=== PATIENT | female | born 1950 | race Caucasian/White ===

== ENCOUNTER 2020-04-16 17:02 | Emergency (ER) | payer MEDICARE, SELFPAY ==
[~2020-04-16] VITALS: Ht 170.2 cm; Wt 80.7 kg
[2020-04-16] MEDS ORDERED: NACL 0.9% 1,000 ML IV ONE ×2 (17:13→19:00)
--- NOTE | 2020-04-16 17:14 | NUR ---
Patient triaged and placed in waiting room (tent). VSS and patient appears in no acute distress at this time. Accompanied by , awaiting available bed, and MD notified of need for MSE.
[2020-04-16] MEDS ORDERED: MORPHINE 4 MG/ML INJ. SYRINGE IVP ONE (17:15)
[2020-04-16] MEDS ORDERED: ONDANSETRON HCL 4 MG/2 ML VIAL IVP ONE (17:15)
--- NOTE | 2020-04-16 17:39 | NUR ---
Patient to ER bed 06 to gown for evaluation. Side rails up. Report given to KIERA Sloan
--- NOTE | 2020-04-16 18:00 | NUR ---
Patient arrived via POV with family. Patient c/c of high blood pressure. Nausea, vomiting, diarrhea x 2 days, generalized weakness. Cough and SOB x 3 days. Patient notes 99.2 fever this AM. Patient is calm and cooperative. Will continue to follow up and monitor for changes in status.
[2020-04-16 18:27] LABS: BASOPHILS % (AUTO) 0.5 % (0.0-2.0); EOSINOPHILS % (AUTO) 0.9 % (0.0-4.0); HEMATOCRIT 40.5 % (36-48); HEMOGLOBIN 13.5 g/dL (12.0-16.0); LYMPHOCYTES # (AUTO) 0.7 K/uL (1.0-5.5); LYMPHOCYTES % (AUTO) 11.8 % (20.5-51.5); MEAN CORPUSCULAR HEMOGLOBIN 31 pg (27-31); MEAN CORPUSCULAR HGB CONC 33 % (32-36); MEAN CORPUSCULAR VOLUME 93 fL (79.0-98.0); MONOCYTES # (AUTO) 0.4 K/uL (0.0-1.0); MONOCYTES % (AUTO) 6.8 % (1.7-9.3); NEUTROPHILS # (AUTO) 4.6 K/uL (1.8-7.7); PLATELET COUNT (AUTO) 148 K/uL (130-430); RED BLOOD CELL COUNT(AUTO) 4.35 MIL/uL (4.2-6.2); RED CELL DISTRIBUTION WIDTH 13.5 % (9.0-15.0); WHITE BLOOD COUNT (AUTO) 5.8 K/uL (4.8-10.8)
[2020-04-16 18:34] LABS: CREATININE 0.78 mg/dL (0.55-1.30); POTASSIUM 3.7 mmol/L (3.5-5.1)
[2020-04-16 18:45] LABS: ALBUMIN 4.3 g/dL (3.4-4.8); TOTAL BILIRUBIN 0.6 mg/dL (0.0-1.0)
[2020-04-16 18:51] LABS: PROTHROMBIN TIME 9.9 SECS (9.5-12.5)
[2020-04-16 19:06] LABS: BILIRUBIN,URINE NEGATIVE (NEGATIVE); CLARITY/URINE CLEAR (CLEAR); COLOR,URINE YELLOW (YELLOW); GLUCOSE,URINE NEGATIVE (NEGATIVE); KETONES,URINE NEGATIVE (NEGATIVE); LEUKOCYTE ESTERASE ,URINE TRACE (NEGATIVE); NITRITE, URINE NEGATIVE (NEGATIVE); PROTEIN URINE NEGATIVE (NEGATIVE); UROBILINOGEN,URINE 0.2 (0.2-1.0)
[2020-04-16 19:15] LABS: BLOOD, URINE TRACE (NEGATIVE)
[2020-04-16 19:16] LABS: RBC,URINE NONE SEEN /HPF (0-3)
[2020-04-16 19:17] LABS: BACTERIA,URINE FEW /HPF (None Seen); MUCUS,URINE None Seen /LPF (None Seen)
[2020-04-16 19:50] VITALS: BP_SYST 160
--- NOTE | 2020-04-16 19:50 | NUR ---
Patient given written and verbal discharge instructions and verbalizes understanding. ER MD discussed with patient the results and treatment provided. Patient in stable condition. ID arm band removed. IV catheter removed intact and dressing applied, no active bleeding. Rx of FLAGYL, CIPRO, TYLENOL WITH CODEINE given. Patient educated on pain management and to follow up with PMD. Pain Scale 0/10. Opportunity for questions provided and answered. Medication side effect fact sheet provided.
== END 2020-04-16 19:50 | disposition home or self-care (01) ==
LOC: SED 17:02 → EEVIPCON 17:02 → SED 19:50
DX: K57.92 Diverticulitis of intestine, part unspecified, without perforation or abscess without bleeding (principal); R10.32 Left lower quadrant pain; R11.2 Nausea with vomiting, unspecified; I10 Essential (primary) hypertension; Z20.828 Contact with and (suspected) exposure to other viral communicable diseases; Z88.0 Allergy status to penicillin; Z90.49 Acquired absence of other specified parts of digestive tract
CPT/HCPCS: 36415; 71045; 74176; 80053; 81000; 82150; 82550; 83605; 83690; 83880; 84484; 85025; 85610; 85730; 86710; 87040; 93005; 96360; 99285; C9803; J7030; U0003